=== PATIENT | male | born 1940 | race Caucasian/White ===

== ENCOUNTER 2017-02-27 20:15 | Emergency (ER) | payer MEDICARE, OTHER ==
[2017-02-27] MEDS ORDERED: ONDANSETRON HCL IV 4 MG/2 ML VIAL IVP ONE (20:51)
[2017-02-27] MEDS ORDERED: MORPHINE SULFATE 5 MG/ML PFS IVP ONE (20:51)
--- NOTE | 2017-02-27 20:56 | Emergency Department Record ---
History of Present Illness - General Chief Complaint: Fall Injury Stated Complaint: FALL Time Seen by Provider: 02/27/17 20:50 Source: Patient Mode of Arrival: Ambulatory Limitations: No limitations - History of Present Illness Initial Comments: 77 yo male presents to ED with a CC of right shoulder pain following a trip-and fall this evening in his yard. Patient denies other injury, and denies injury to the right elbow, wrist, or hand on examination. Patient denies numbness or tingling to the hand distally. Patient denies health problems other than HTN, does not take anticoagulation medications. 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 Place Fall Occurred: Home Loss of Consciousness: None Prolonged Down Time?: No Symptoms Prior to Fall: None Location - Extremities: Right: Shoulder Severity: Severe Quality: Aching Associated Symptoms: Denies - [place] Coma Scale Eye Response: (4) Open spontaneously Motor Response: (6) Obeys commands Verbal Response: (5) Oriented [place] Total: 15 - Related Data Home Medications Medication Instructions Recorded Confirmed Last Taken Amlodipine Besylate [Norvasc] 5 mg PO DAILY 02/27/17 02/27/17 02/27/17 Previous Rx's Medication Instructions Recorded Hydrocodone/Acetaminophen [[place] 1 tab PO Q6H PRN #15 tab 02/27/17 7.5mg/325mg] Allergies Allergy/AdvReac Type Severity Reaction Status Date / Time No Known Drug Allergies Allergy Verified 02/27/17 20:19 Travel Screening - Travel/Exposure Within Last 30 Days Have you traveled within the last 30 days?: No - Travel/Exposure Within Last Year Have you traveled outside the [place] in the last year?: No - Additonal Travel Details Have you been exposed to anyone with a communicable illness?: No Review of Systems Constitutional: Denies: Chills, Fever, Malaise, Night sweats Eyes: Denies: Eye discharge, Eye pain ENT: Denies: Congestion, Ear pain, Epistaxis Respiratory: Denies: Cough, Dyspnea Cardiovascular: Denies: Chest pain, Dyspnea on exertion Endocrine: Denies: Fatigue, Heat or cold intolerance Gastrointestinal: Denies: Abdominal pain, Nausea, Vomiting Genitourinary: Denies: Incontinence, Retention Musculoskeletal: Reports: Arthralgia, Joint swelling. Denies: Back pain, Gout Skin: Denies: Bruising, Change in color, Change in hair/nails, Rash Neurological: Denies: Abnormal gait, Confusion, Headache, Seizure Psychiatric: Denies: Anxiety Hematological/Lymphatic: Denies: Anemia, Blood Clots Past Medical History - SOCIAL HISTORY Smoking Status: Never smoker Alcohol Use: None Drug Use: None - RESPIRATORY Hx Respiratory Disorders: No - CARDIOVASCULAR Hx Cardio Disorders: Yes Hx Hypertension: Yes - NEURO Hx Neuro Disorders: No - GI Hx GI Disorders: No - Hx Genitourinary Disorders: No - ENDOCRINE Hx Endocrine Disorders: No - MUSCULOSKELETAL Hx Musculoskeletal Disorders: No - PSYCH Hx Psych Problems: No - HEMATOLOGY/ONCOLOGY Hx Hematology/Oncology Disorders: No Family Medical History Any Significant Family History?: No Physical Exam - General General Appearance: Alert, Oriented x3, Cooperative, Moderate distress Limitations: No limitations - Head Head exam: Atraumatic, Normocephalic, Normal inspection Head exam detail: negative: Abrasion, Contusion, Vance's sign, General tenderness, Hematoma, Laceration - Eye Eye exam: Normal appearance. negative: Conjunctival injection, Periorbital swelling, Periorbital tenderness, Scleral icterus - ENT Ear exam: negative: Auricular hematoma, Auricular trauma Nasal Exam: negative: Active bleeding, Discharge, Dried blood, Foreign body Mouth exam: negative: Drooling, Laceration, Muffled voice, Tongue elevation - Neck Neck exam: Normal inspection. negative: Meningismus, Tenderness - Respiratory Respiratory exam: Normal lung sounds bilaterally. negative: Rales, Respiratory distress, Rhonchi, Stridor - Cardiovascular Cardiovascular Exam: Regular rate, Normal rhythm, Normal heart sounds Peripheral Pulses: 3+: Radial (R) - GI/Abdominal GI/Abdominal exam: Soft. negative: Rebound, Rigid, Tenderness - Rectal Rectal exam: Deferred - exam: Deferred - Extremities Extremities exam: Joint swelling, Tenderness, Other (STS and pain with palpation over the right shoulder, decreased ROM due to pain, no pain with palpation over the elbow, wrist, or hand on examination. Compartments to the upper/forearm are soft on examination. Distal radial pulse strong and present, cap refill < 2 seconds.). negative: Calf tenderness, Pedal edema - Back Back exam: Denies: CVA tenderness (R), CVA tenderness (L) - Neurological Neurological exam: Alert, Normal gait, Oriented X3 - Psychiatric Psychiatric exam: Normal affect, Normal mood - Skin Skin exam: Normal color. negative: Abrasion Type of lesion: negative: abrasion Course Vital Signs 02/27/17 20:21 Temperature 97.6 F Pulse Rate 68 Respiratory 24 Rate Blood Pressure 130/55 Pulse Ox 100 - Reevaluation(s) Reevaluation #1: 02/27/17 20:56 Morphine and Zofran given for probable proximal humerus fracture. Patient's pain symptoms are improved at this time. 02/27/17 22:19 Reevaluation #2: 02/27/17 22:19 Right shoulder: Oblique proximal humerus fracture with medial displacement of the proximal fracture fragment. Case was discussed with Dr. Giles, reviewed the xray findings with him, feels that the patient should be able to be discharged home with outpatient follow-up on if the patient's pain symptoms are controlled. Patient and family were updated on the plan of care at this time, will reassess 20 minutes following Dilaudid administration and splinting to determine if his pain is controlled. Will place in OCL long-arm splint for support and reassess. 02/27/17 22:23 Disposition Disposition: Discharge Clinical Impression: Fracture, humerus closed Qualifiers: Encounter type: initial encounter Humerus Location: proximal Fracture morphology: unspecified fracture morphology Laterality: right Qualified Code(s) : S42.201A - Unspecified fracture of upper end of right humerus, initial encounter for closed fracture Disposition: Home, Self-Care Condition: (2) Stable Instructions: Arm Fracture in Adults (ED) Additional Instructions: Return to ED if your symptoms worsen or if you have any concerns. [place] as directed for your pain symptoms. Follow-up with Dr. Giles in the [facility] Specialty clinic. Leave splint in place until seen by Dr. Giles. Prescriptions: Hydrocodone/Acetaminophen [[place] 7.5mg/325mg] 1 tab PO Q6H PRN #15 tab PRN Reason: Pain - General Referrals: DANIEL GILES [DOCTOR OF OSTEOPATH] - [facility] Specialty Clinics [Provider Group] Forms: Patient Portal Access Time of Disposition: 22:29
[2017-02-27] MEDS ORDERED: HYDROMORPHONE HCL 1 MG/ML CPJ IVP ONE (21:55)
[2017-02-27] MEDS ORDERED: HYDROCODONE/APAP 7.5/325MG TABLET PO ONE (23:02)
[2017-02-27] MEDS ORDERED: ONDANSETRON 4 MG ODT TABLET SL ONE (23:26)
--- NOTE | 2017-02-27 23:28 | Emergency Department Record ---
History of Present Illness - General Chief Complaint: Fall Injury Stated Complaint: FALL Time Seen by Provider: 02/27/17 20:50 Source: Patient Mode of Arrival: Ambulatory - History of Present Illness Initial Comments: 77 yo male presents to ED with a CC of right shoulder pain following a trip and fall while out in his yard this morning. Patient pain with movement, denies other injury. Patient denies head or neck injury. Patient denies numbness or tingling of the right UE. 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, by family Place Fall Occurred: Home Loss of Consciousness: None Prolonged Down Time?: No Symptoms Prior to Fall: None Location: Other Location - Extremities: Right: Shoulder Severity: Severe Quality: Aching Context: Tripped/slipped Associated Symptoms: Denies - [place] Coma Scale Eye Response: (4) Open spontaneously Motor Response: (6) Obeys commands Verbal Response: (5) Oriented [place] Total: 15 - Related Data Home Medications Medication Instructions Recorded Confirmed Last Taken Amlodipine Besylate [Norvasc] 5 mg PO DAILY 02/27/17 02/27/17 02/27/17 Previous Rx's Medication Instructions Recorded Hydrocodone/Acetaminophen [[place] 1 tab PO Q6H PRN #15 tab 02/27/17 7.5mg/325mg] Ondansetron [Zofran Odt] 4 mg PO Q6H PRN #15 tab.rapdis 02/27/17 Allergies Allergy/AdvReac Type Severity Reaction Status Date / Time No Known Drug Allergies Allergy Verified 02/27/17 20:19 Travel Screening - Travel/Exposure Within Last 30 Days Have you traveled within the last 30 days?: No - Travel/Exposure Within Last Year Have you traveled outside the [place] in the last year?: No - Additonal Travel Details Have you been exposed to anyone with a communicable illness?: No - Travel Symptoms Symptom Screening: None Review of Systems Constitutional: Denies: Chills, Fever, Malaise, Night sweats Eyes: Denies: Eye discharge, Eye pain ENT: Denies: Congestion, Ear pain, Epistaxis Respiratory: Denies: Cough, Dyspnea Cardiovascular: Denies: Chest pain, Dyspnea on exertion Endocrine: Denies: Fatigue, Heat or cold intolerance Gastrointestinal: Denies: Abdominal pain, Nausea, Vomiting Genitourinary: Denies: Incontinence, Retention Musculoskeletal: Reports: Arthralgia, Joint swelling. Denies: Back pain, Gout Skin: Denies: Bruising, Change in color, Change in hair/nails, Rash Neurological: Denies: Abnormal gait, Confusion, Headache, Seizure Psychiatric: Denies: Anxiety Hematological/Lymphatic: Denies: Anemia, Blood Clots Past Medical History - SOCIAL HISTORY Smoking Status: Never smoker Alcohol Use: None Drug Use: None - RESPIRATORY Hx Respiratory Disorders: No - CARDIOVASCULAR Hx Cardio Disorders: Yes Hx Hypertension: Yes - NEURO Hx Neuro Disorders: No - GI Hx GI Disorders: No - Hx Genitourinary Disorders: No - ENDOCRINE Hx Endocrine Disorders: No - MUSCULOSKELETAL Hx Musculoskeletal Disorders: No - PSYCH Hx Psych Problems: No - HEMATOLOGY/ONCOLOGY Hx Hematology/Oncology Disorders: No Family Medical History Any Significant Family History?: No Physical Exam - General General Appearance: Alert, Oriented x3, Cooperative, Moderate distress Limitations: No limitations - Head Head exam: Atraumatic, Normocephalic, Normal inspection Head exam detail: negative: Abrasion, Contusion, Vance's sign, General tenderness, Hematoma, Laceration - Eye Eye exam: Normal appearance. negative: Conjunctival injection, Periorbital swelling, Periorbital tenderness, Scleral icterus - ENT Ear exam: negative: Auricular hematoma, Auricular trauma Nasal Exam: negative: Active bleeding, Discharge, Dried blood, Foreign body Mouth exam: negative: Drooling, Laceration, Muffled voice, Tongue elevation Throat exam: negative: Tonsillar erythema, Tonsillomegaly, Tonsillar exudate, R peritonsillar mass, L peritonsillar mass - Neck Neck exam: Normal inspection. negative: Meningismus, Tenderness - Respiratory Respiratory exam: Normal lung sounds bilaterally. negative: Rales, Respiratory distress, Rhonchi, Stridor - Cardiovascular Cardiovascular Exam: Regular rate, Normal rhythm, Normal heart sounds - GI/Abdominal GI/Abdominal exam: Soft. negative: Rebound, Rigid, Tenderness - Rectal Rectal exam: Deferred - exam: Deferred - Extremities Extremities exam: Tenderness, Other (TTP and STS over the anterior shoulder, decreased ROM due to pain. No pain with palpation over the right elbow or wrist. Strong distal radial pulse on examination, compartments of the upper and forearm are soft.). negative: Calf tenderness, Pedal edema - Back Back exam: Denies: CVA tenderness (R), CVA tenderness (L) - Neurological Neurological exam: Alert, Normal gait, Oriented X3 - Psychiatric Psychiatric exam: Normal affect, Normal mood - Skin Skin exam: Normal color. negative: Abrasion Type of lesion: negative: abrasion Course Vital Signs 02/27/17 02/27/17 20:21 21:24 Temperature 97.6 F Pulse Rate 68 Pulse Rate [ 70 Pulse Ox Probe] Respiratory 24 22 Rate Blood Pressure 130/55 Blood Pressure 137/63 [Left Arm] Pulse Ox 100 97 Disposition Clinical Impression: Fracture, humerus closed Qualifiers: Encounter type: initial encounter Humerus Location: proximal Fracture morphology: unspecified fracture morphology Laterality: right Qualified Code(s) : S42.201A - Unspecified fracture of upper end of right humerus, initial encounter for closed fracture Disposition: Home, Self-Care Condition: (2) Stable Instructions: Arm Fracture in Adults (ED) Additional Instructions: Return to ED if your symptoms worsen or if you have any concerns. [place] as directed for your pain symptoms. Follow-up with Dr. Giles in the [facility] Specialty clinic. Leave splint in place until seen by Dr. Giles. Prescriptions: Hydrocodone/Acetaminophen [[place] 7.5mg/325mg] 1 tab PO Q6H PRN #15 tab PRN Reason: Pain - General Ondansetron [Zofran Odt] 4 mg PO Q6H PRN #15 tab.rapdis PRN Reason: Nausea/Vomiting Referrals: [facility] Specialty Clinics [Provider Group] DANIEL GILES [DOCTOR OF OSTEOPATH] - Forms: Patient Portal Access
== END 2017-02-27 23:35 | disposition home or self-care (01) ==
LOC: ER 20:15
DX: S42.201A Unspecified fracture of upper end of right humerus, initial encounter for closed fracture (principal); I10 Essential (primary) hypertension; W18.09XA Striking against other object with subsequent fall, initial encounter; Y92.007 Garden or yard of unspecified non-institutional (private) residence as the place of occurrence of the external cause
CPT/HCPCS: 96374; 96375; 99284; J1170; J2405

== ENCOUNTER 2017-08-22 06:53 | Day surgery (SDC) | payer MEDICARE, OTHER ==
[~2017-08-22 06:53] MED LIST: ACETAMINOPHEN 1,000 MG/100 ML BTL IV ONE
[2017-08-22] MEDS ORDERED: FENTANYL PF 100MCG/2ML VIAL IV ONE (15:49)
[2017-08-22] MEDS ORDERED: PROPOFOL 10 MG/ML VIAL IV ONE (15:49)
[2017-08-22] MEDS ORDERED: LIDOCAINE 2% MDV (20MG/ML) 20ML VIAL IV ONE (15:49)
[2017-08-22] MEDS ORDERED: MIDAZOLAM HCL 2MG/2ML VIAL IV ONE (15:49)
[2017-08-22] MEDS ORDERED: SILVER SULFADIAZINE 25 GM CREAM TOP ONE (16:21)
[2017-08-22] MEDS ORDERED: BUPIVACAINE 0.25% MPF 30ML VIAL IVP ONE (16:21)
--- NOTE | 2017-08-23 14:31 | Operative Note ---
DATE OF SURGERY: 08/22/2017 Surgeon: Emory Gilbert DO PREOPERATIVE DIAGNOSIS: Basal cell cancer, nose. POSTOPERATIVE DIAGNOSIS: Basal cell cancer, nose. OPERATION: Excision and fulguration of basal cell cancer, nose. Indication: The patient is a 77-year-old male who recently saw his dermatology who noticed a lesion on his nose which was biopsied. This did come back consistent with basal cell cancer. I saw him in the clinic, and due to the location, I let him know that this typically could not be an area we can fully excise but then fulguration and followup chemical fulguration could be done. Risks, benefits, and alternatives were discussed. Risks include bleeding, infection, unfavorable cosmetic outcome, need for additional operation. He understood this fully. PROCEDURE: Therefore, after consent was signed and questions answered, the patient was taken to the operating room and placed in a supine position. Local and IV sedation was given per the department of anesthesia. The patient's nose was prepped and draped in the usual fashion. It was then anesthetized with a total of 3 mL of 0.25% plain. The eschar was then debrided and passed off the field. The underlying basal cell lesion was then fulgurated, measuring about 1 cm circumferentially. Silvadene ointment was then placed, and he was taken to the recovery room in satisfactory condition. CC: DO PARTH Cunningham
== END 2017-08-22 09:30 | disposition home or self-care (01) ==
LOC: SUR 06:53
PROVIDERS: ATTEND Surgery
DX: C44.311 Basal cell carcinoma of skin of nose (principal); I10 Essential (primary) hypertension
CPT/HCPCS: 17281; 00300; 88305; J3010

== ENCOUNTER 2019-08-23 07:27 | Day surgery (SDC) | payer MEDICARE, OTHER ==
[2019-08-23] MEDS ORDERED: MIDAZOLAM HCL 2MG/2ML VIAL IV ONE (07:28)
[2019-08-23] MEDS ORDERED: PROPOFOL 10 MG/ML VIAL IV ONE (07:28)
[2019-08-23] MEDS ORDERED: LIDOCAINE 2% MDV (20MG/ML) 20ML VIAL IV ONE (07:28)
[2019-08-23] MEDS ORDERED: 0.9 % SODIUM CHLORIDE 1000ML 500 ML IV ONE (07:48)
[2019-08-23] MEDS ORDERED: BRIMONIDINE TARTRATE 0.2% OPTHALMIC DROPS OP ONE (08:26)
[2019-08-23] MEDS ORDERED: NEOM/BACI/POLY/HC 3.5 GM OPTH OINT OPTH ONE (08:26)
[2019-08-23] MEDS ORDERED: LIDOCAINE 2% MDV (20MG/ML) 20ML VIAL INJ ONE (08:26)
[2019-08-23] MEDS ORDERED: TETRACAINE HCL 0.5% OPTH 2ML SOLU OPTH ONE (08:26)
[2019-08-23] MEDS ORDERED: EPINEPHRINE 1 MG/ML AMPUL IO ONE (08:26)
[2019-08-23] MEDS ORDERED: TIMOLOL MALEATE 0.5% 5ML BTL OPTH ONE (08:26)
[2019-08-23] MEDS ORDERED: CIPROFLOXACIN HCL 0.0015 GM, PHENYLEPHRINE HCL 0.05 GM, KETOROLAC TROMETHAMINE 0.000625 GM MC ONE ×5 (13:15)
--- NOTE | 2019-08-27 07:21 | Operative Note ---
DATE OF SURGERY: 08/23/2019 PREOPERATIVE DIAGNOSIS: Nuclear sclerotic cataract, left eye. POSTOPERATIVE DIAGNOSIS: Nuclear sclerotic cataract, left eye. OPERATION: Phacoemulsification of cataractous lens with implantation of intraocular lens, temporal approach. LENS IMPLANT USED: Pablo and Pablo Model PCB00 +20.5 diopters. COMPLICATIONS: None. PROCEDURE IN DETAIL: Following a retrobulbar and facial block, the patient was prepped and draped in the usual fashion for eye surgery. A lid speculum was placed in the left eye after which a 2.4 mm tunnel wound was placed at the temporal limbus and dissected into clear cornea. A paracentesis was placed at 2 clock hours to the left and right of the initial incision and the chamber deepened with Viscoelastic. The keratome was then used to enter the anterior chamber after which the left capsulorrhexis was accomplished without difficulty using a bent needle and Utrata forceps. Hydrodissection and hydrodelineation of the lens was performed after which the nucleus of the lens was removed using the Phaco handpiece in the divide and conquer technique. The residual cortical material was irrigated and aspirated from the eye, after which the bag and chamber were reexamined. The bag was re-inflated with Viscoelastic and the intraocular lens injected into the capsular bag where it centered well. The Viscoelastic was then copiously irrigated and aspirated from the eye after which the temporal tunnel wound and paracentesis were hydrated and the wounds were examined. They were noted to be watertight. The lid speculum was removed from the eye and the eye patched and shielded. The patient was transferred to recovery in satisfactory condition. PARTH
== END 2019-08-23 09:04 | disposition home or self-care (01) ==
LOC: SUR 07:27
PROVIDERS: ATTEND Ophthalmology
DX: H25.12 Age-related nuclear cataract, left eye (principal); I10 Essential (primary) hypertension
CPT/HCPCS: J0171; J7030

== ENCOUNTER 2019-09-06 07:23 | Day surgery (SDC) | payer MEDICARE, OTHER ==
[2019-09-06] MEDS ORDERED: PROPOFOL 10 MG/ML VIAL IV ONE (07:24)
[2019-09-06] MEDS ORDERED: LIDOCAINE 2% MDV (20MG/ML) 20ML VIAL IV ONE (07:24)
[2019-09-06] MEDS ORDERED: 0.9 % SODIUM CHLORIDE 1000ML 500 ML IV ONE (08:00)
[2019-09-06] MEDS ORDERED: NEOM/BACI/POLY/HC 3.5 GM OPTH OINT OPTH ONE (09:04)
[2019-09-06] MEDS ORDERED: TETRACAINE HCL 0.5% OPTH 2ML SOLU OPTH ONE (09:04)
[2019-09-06] MEDS ORDERED: EPINEPHRINE 1 MG/ML AMPUL IO ONE (09:04)
[2019-09-06] MEDS ORDERED: BRIMONIDINE TARTRATE 0.2% OPTHALMIC DROPS OP ONE (09:04)
[2019-09-06] MEDS ORDERED: TIMOLOL MALEATE 0.5% 5ML BTL OPTH ONE (09:04)
[2019-09-06] MEDS ORDERED: LIDOCAINE 2% MDV (20MG/ML) 20ML VIAL INJ ONE (09:04)
[2019-09-06] MEDS ORDERED: CIPROFLOXACIN HCL 0.0015 GM, PHENYLEPHRINE HCL 0.05 GM, KETOROLAC TROMETHAMINE 0.000625 GM MC ONE ×5 (16:30)
--- NOTE | 2019-09-07 08:49 | OP NOTE CHAMES ---
DATE OF PROCEDURE: 09/06/2019 PREOPERATIVE DIAGNOSIS: Nuclear sclerotic cataract, right eye. POSTOPERATIVE DIAGNOSIS: Nuclear sclerotic cataract, right eye. OPERATION: Phacoemulsification of cataractous lens with implantation of intraocular lens. LENS IMPLANT USED: Pablo & Pablo Model PCB00 + 21.0 diopters. COMPLICATIONS: None. PROCEDURE IN DETAIL: Following a retrobulbar and facial block, the patient was prepped and draped in the usual fashion for eye surgery. A lid speculum was placed in the right eye after which a 2.4 mm tunnel wound was placed at the temporal limbus and dissected into clear cornea. A paracentesis was placed at 2 oclock hours to the left and right of the initial incision and the chamber deepened with Viscoelastic. The keratome was then used to enter the anterior chamber after which the continuous circular capsulorrhexis was accomplished without difficulty using a bent needle and a Utrata forceps. Hydrodissection and hydrodelineation of the lens was performed after which the nucleus of the lens was removed using the Phaco handpiece in the [id number] technique. The residual cortical material was irrigated and aspirated from the eye after which the bag and chamber were re-examined. The bag was re-inflated with Viscoelastic and the intraocular lens injected into the capsular bag where it centered well. The Viscoelastic was then copiously irrigated and aspirated from the eye after which the temporal tunnel wound and paracentesis were hydrated and the wounds were examined. They were noted to be watertight. The lid speculum was removed from the eye and the eye patched and shielded. The patient was transferred to the recovery room in satisfactory condition and given an appointment to be reexamined in the clinic later today or as directed by Dr. Arteaga. JOB NUMBER: [id number] MTDD
== END 2019-09-06 09:38 | disposition home or self-care (01) ==
LOC: SUR 07:23
PROVIDERS: ATTEND Ophthalmology
DX: H25.11 Age-related nuclear cataract, right eye (principal); I10 Essential (primary) hypertension
CPT/HCPCS: J0171; J7030